=== PATIENT | male | born 1990 | race African-American/Black ===

== ENCOUNTER 2017-01-20 07:29 | Emergency (ER) | payer SELFPAY ==
[~2017-01-20] VITALS: Ht 182.9 cm; Wt 75.0 kg
[~2017-01-20 07:29] MED LIST: NO MEDS
[2017-01-20] MEDS ORDERED: KETOROLAC TROMETHAMINE 60 MG/2 ML VIAL IM ONE (08:30)
[2017-01-20 10:00] VITALS: BP 126/82
== END 2017-01-20 10:17 | disposition home or self-care (01) ==
LOC: EMS 07:31
DX: S39.012A Strain of muscle, fascia and tendon of lower back, initial encounter (principal); F17.210 Nicotine dependence, cigarettes, uncomplicated; F12.90 Cannabis use, unspecified, uncomplicated; X58.XXXA Exposure to other specified factors, initial encounter; Y93.9 Activity, unspecified; Y99.9 Unspecified external cause status; Y92.9 Unspecified place or not applicable
CPT/HCPCS: 96372; 99283; J1885